=== PATIENT | male | born 1985 | race Two or more races ===

== ENCOUNTER 2017-07-26 12:29 | Emergency (ER) | payer SELFPAY ==
[~2017-07-26] VITALS: Ht 162.6 cm; Wt 54.4 kg
--- NOTE | 2017-07-26 12:41 | Emergency Room Report ---
History of Present Illness General Chief Complaint: Vomiting Source: Patient Present Illness HPI 31YOM with acute vomiting and Centralized abdominal pain radiating to back, history of gastritis. Questionable history of drinking. No recent abdominal or pelvic surgeries. Patient actively vomiting so history of present illness is otherwise limited. Allergies: Coded Allergies: No Known Allergies (Unverified , 07/26/17) Patient History Limited by: medical condition Past Medical History: other - gastritis? Past Surgical History: unable to obtain Pertinent Family History: unable to obtain Social History: Reports: alcohol use Immunizations: UTD Reviewed Nursing Documentation: PMH: Agreed; PSxH: Agreed Nursing Documentation-PM Past Medical History: No History, Except For Review of Systems All Other Systems: negative except mentioned in HPI Physical Exam Vital Signs Date Time Temp Pulse Resp B/P (MAP) Pulse Ox O2 Delivery O2 Flow Rate FiO2 07/26/17 12:31 99.1 65 24 151/115 100 Room Air 99.1 Sp02 EP Interpretation: reviewed, normal General Appearance: normal inspection, well appearing, no apparent distress, alert, GCS 15, non-toxic, other - actively wretching, bilious vomiting Head: normocephalic, atraumatic Eyes: bilateral eye PERRL, bilateral eye EOMI ENT: normal ENT inspection, hearing grossly normal, normal pharynx, no angioedema, normal voice, TMs + canals normal, uvula midline, moist mucus membranes Neck: normal inspection, full range of motion, supple, thyroid normal, no meningismus, no bony tend Respiratory: normal inspection, lungs clear, normal breath sounds, no rhonchi, no respiratory distress, no retraction, no accessory muscle use, no wheezing, speaking full sentences Cardiovascular #1: regular rate, rhythm, no edema, no JVD, normal capillary refill Gastrointestinal: normal inspection, normal bowel sounds, non tender, soft, no mass, no peritonitis, non-distended, no guarding, no hernia, no pulsatile mass Genitourinary: no CVA tenderness Musculoskeletal: normal inspection, back normal, normal range of motion, no calf tenderness, pelvis stable, Shane's Sign negative Neurologic: normal inspection, alert, oriented x3, responsive, glass technician III-XII nml as tested, motor strength/tone normal, cerebellar normal, normal gait, speech normal Psychiatric: normal inspection, judgement/insight normal, mood/affect normal, no suicidal/homicidal ideation, no delusions Skin: normal inspection, normal color, no rash Lymphatic: normal inspection, no adenopathy Medical Decision Making Diagnostic Impression: Primary Impression: Vomiting Qualified Codes: R11.11 - Vomiting without nausea ER Course Vital signs are stable, afebrile Elevated leukocytosis 14,000 possibly reactionary from stress reaction, multiple episodes of vomiting LFTs, lipase are normal Patient with severe abdominal pain, continues to vomit despite 8 of Zofran and morphine Will get CT to evaluate for pancreatitis, perforated viscus however most likely severe gastritis Endorsed to Dr Martinez at 2pm to f/up CT Rhythm Strip Diag. Results EP Interpretation: yes Rate: 68 Rhythm: NSR, no PVC's, no ectopy Last Vital Signs Date Time Temp Pulse Resp B/P (MAP) Pulse Ox O2 Delivery O2 Flow Rate FiO2 07/26/17 12:31 99.1 65 24 151/115 100 Room Air 99.1 Status: improved ALANA EATON M.D. Jul 26, 2017 12:41
[2017-07-26 12:44] LABS: HEMATOCRIT 49.8 % (42.0-52.0); HEMOGLOBIN 17.5 G/DL (14.2-18.0); MEAN CORPUSCULAR VOLUME 91 FL (80-99); PLATELET COUNT 325 K/UL (150-450); RED BLOOD COUNT 5.48 M/UL (4.70-6.10); RED CELL DISTRIBUTION WIDTH 10.4 % (11.6-14.8); WHITE BLOOD COUNT 14.1 K/UL (4.8-10.8)
[2017-07-26] MEDS ORDERED: Morphine Sulfate 4mg/ml Inj IVP ONE (12:45)
[2017-07-26 12:59] VITALS: BP 151/115
[2017-07-26 13:12] LABS: BLOOD UREA NITROGEN 11 mg/dL (7-18); CALCIUM 9.6 MG/DL (8.5-10.1); CARBON DIOXIDE 33 MMOL/L (21-32); CREATININE 1.1 MG/DL (0.55-1.30); POTASSIUM 4.3 MMOL/L (3.5-5.1)
[2017-07-26 13:17] LABS: ALANINE AMINOTRANSFERASE 31 U/L (12-78); ALBUMIN 4.1 G/DL (3.4-5.0); ALBUMIN/GLOBULIN RATIO 1.3 (1.0-2.7); ALKALINE PHOSPHATASE 106 U/L (46-116); ASPARTATE AMINO TRANSFERASE 20 U/L (15-37)
[2017-07-26 13:26] LABS: CHLORIDE 102 MMOL/L (98-107); SODIUM 141 MMOL/L (136-145)
[2017-07-26] MEDS ORDERED: Isovue-300 100ml vial INJ PRN (13:30)
[2017-07-26] MEDS ORDERED: LORazepam Inj 2mg/ml 1ml IV ONE (13:30)
[2017-07-26 13:54] LABS: APPEARANCE,URINE CLOUDY; BILIRUBIN, URINE NEGATIVE (NEGATIVE); GLUCOSE, URINE (UA) NEGATIVE (NEGATIVE); KETONES,URINE NEGATIVE (NEGATIVE); LEUKOCYTE ESTERASE ,URINE NEGATIVE (NEGATIVE); NITRITE,URINE NEGATIVE (NEGATIVE); PH,URINE 8 (4.5-8.0); PROTEIN,URINE NEGATIVE (NEGATIVE); UROBILINOGEN,URINE NORMAL MG/DL (0.0-1.0)
[2017-07-26 13:57] LABS: COLOR,URINE YELLOW
--- NOTE | 2017-07-26 15:30 | Diagnostic Imaging Report ---
Clinical Indication: Acute vomiting and generalized abdominal pain, history of gastritis Technique: No oral contrast utilized, per emergency room physician request IV administration nonionic contrast. Venous phase spiral acquisition obtained through the abdomen and pelvis. Multiplanar reconstructions were generated. Total dose length product 432.12 mGycm. CTDIvol(s) 8.93 mGy. Dose reduction achieved using automated exposure control Comparison: none Findings: Lack of enteric contrast limits assessment of the GI tract. The appendix is not definitely demonstrated, but no findings to suggest acute appendicitis are evident. No evidence of diverticulosis or diverticulitis. No free or loculated intraperitoneal air or fluid is evident. Distal esophagus, stomach, duodenum are unremarkable. The liver, gallbladder, bile ducts, pancreas, spleen, adrenals, kidneys are all unremarkable. No retroperitoneal or mesenteric mass or adenopathy. No pelvic mass or adenopathy. The included lung bases are clear. The bones are unremarkable Impression: Limited assessment of the GI tract, given absence of enteric contrast administration Essentially unremarkable exam. No acute abnormality demonstrated Nonvisualized appendix, but no findings to suggest acute appendicitis The CT scanner at [facility] is accredited by the [employer] and the scans are performed using protocols designed to limit radiation exposure to as low as reasonably achievable to attain images of sufficient resolution adequate for diagnostic evaluation.
[2017-07-26] MEDS ORDERED: ZOFRAN4 M1 ORAL (16:55)
[2017-07-26] MEDS ORDERED: PEPCID AC20 M2 PO (16:55)
--- NOTE | 2017-07-26 17:04 | Emergency Room Report ---
History of Present Illness General Chief Complaint: Vomiting Source: Patient Present Illness Allergies: Coded Allergies: No Known Allergies (Unverified , 07/26/17) Nursing Documentation-[facility] Past Medical History: No History, Except For Physical Exam Vital Signs Date Time Temp Pulse Resp B/P (MAP) Pulse Ox O2 Delivery O2 Flow Rate FiO2 07/26/17 12:31 99.1 65 24 151/115 100 Room Air 99.1 Medical Decision Making Diagnostic Impression: Primary Impression: Vomiting Qualified Codes: R11.11 - Vomiting without nausea Additional Impression: abdominal pain ER Course Please refer to the initial note for the history exam and presentation At this time we were pending CT examination CT report by radiology as no acute disease Patient repeat abdominal exam is soft and benign Lower abdomen is not showing any rebound effect or tenderness The initial concern was regarding possible perforation from gastric pathology at this time patient on reevaluation again continues to do well I do see that the white blood cell count was mildly elevated Patient however afebrile And stable for close outpatient follow-up The patient's brother is here reports that what he called gastritis and has appropriate outpatient follow-up Labs Test 07/26/17 12:30 07/26/17 13:32 White Blood Count 14.1 K/UL (4.8-10.8) Red Blood Count 5.48 M/UL (4.70-6.10) Hemoglobin 17.5 G/DL (14.2-18.0) Hematocrit 49.8 % (42.0-52.0) Mean Corpuscular Volume 91 FL (80-99) Mean Corpuscular Hemoglobin 31.8 PG (27.0-31.0) Mean Corpuscular Hemoglobin Concent 35.1 G/DL (32.0-36.0) Red Cell Distribution Width 10.4 % (11.6-14.8) Platelet Count 325 K/UL (150-450) Mean Platelet Volume 5.8 FL (6.5-10.1) Neutrophils (%) (Auto) % (45.0-75.0) Lymphocytes (%) (Auto) % (20.0-45.0) Monocytes (%) (Auto) % (1.0-10.0) Eosinophils (%) (Auto) % (0.0-3.0) Basophils (%) (Auto) % (0.0-2.0) Differential Total Cells Counted 100 Neutrophils % (Manual) 89 % (45-75) Lymphocytes % (Manual) 9 % (20-45) Monocytes % (Manual) 2 % (1-10) Eosinophils % (Manual) 0 % (0-3) Basophils % (Manual) 0 % (0-2) Band Neutrophils 0 % (0-8) Platelet Estimate Adequate Platelet Morphology Normal Red Blood Cell Morphology Normal Sodium Level 141 MMOL/L (136-145) Potassium Level 4.3 MMOL/L (3.5-5.1) Chloride Level 102 MMOL/L (98-107) Carbon Dioxide Level 33 MMOL/L (21-32) Blood Urea Nitrogen 11 mg/dL (7-18) Creatinine 1.1 MG/DL (0.55-1.30) Estimat Glomerular Filtration Rate > 60 mL/min (>60) Glucose Level 123 MG/DL (74-106) Calcium Level 9.6 MG/DL (8.5-10.1) Total Bilirubin 1.0 MG/DL (0.2-1.0) Aspartate Amino Transf (AST/SGOT) 20 U/L (15-37) Alanine Aminotransferase (ALT/SGPT) 31 U/L (12-78) Alkaline Phosphatase 106 U/L (46-116) Total Protein 7.2 G/DL (6.4-8.2) Albumin 4.1 G/DL (3.4-5.0) Globulin 3.1 g/dL Albumin/Globulin Ratio 1.3 (1.0-2.7) Lipase 81 U/L (73-393) Urine Color Yellow Urine Appearance Cloudy Urine pH 8 (4.5-8.0) Urine Specific [place] 1.015 (1.005-1.035) Urine Protein Negative (NEGATIVE) Urine Glucose (UA) Negative (NEGATIVE) Urine Ketones Negative (NEGATIVE) Urine Occult Blood Negative (NEGATIVE) Urine Nitrite Negative (NEGATIVE) Urine Bilirubin Negative (NEGATIVE) Urine Urobilinogen Normal MG/DL (0.0-1.0) Urine Leukocyte Esterase Negative (NEGATIVE) CT/MRI/US Diagnostic Results CT/MRI/US Diagnostic Results : Impression CT abdomen pelvisImpression: Limited assessment of the GI tract, given absence of enteric contrast administration Essentially unremarkable exam. No acute abnormality demonstrated Nonvisualized appendix, but no findings to suggest acute appendicitis Last Vital Signs Date Time Temp Pulse Resp B/P (MAP) Pulse Ox O2 Delivery O2 Flow Rate FiO2 07/26/17 13:13 98.6 07/26/17 12:59 72 24 151/115 100 Room Air Status: improved Disposition: HOME, SELF-CARE Condition: Improved Scripts Ondansetron (Zofran) 4 Mg Tablet 4 MG ORAL Q8HR PRN for Nausea & Vomiting, #12 TAB Prov: Lili Martinez DO 07/26/17 Famotidine (PEPCID AC) 20 Mg Tablet 20 MG PO DAILY for 7 Days, TAB Prov: Lili Martinez DO 07/26/17 Patient Instructions: Nausea and Vomiting, Adult, Abdominal Pain, Adult, Easy- to-Read Additional Instructions: Patient is provided with the discharge instructions notified to follow up with primary doctor in the next 2-3 days otherwise return to the er with any worsening symptoms. Please note that this report is being documented using DRAGON technology. This can lead to erroneous entry secondary to incorrect interpretation by the dictating instrument. Lili Martinez DO Jul 26, 2017 17:04
[2017-07-26 17:21] VITALS: BP 151/115
== END 2017-07-26 17:50 | disposition home or self-care (01) ==
LOC: EMR 12:59
DX: R11.10 Vomiting, unspecified (principal); R10.9 Unspecified abdominal pain; Z87.19 Personal history of other diseases of the digestive system
CPT/HCPCS: 36415; 74177; 80053; 81003; 83690; 85007; 85025; 96374; 96375; 96376; 99284; J2270; J2405; Q9967; S0028